=== PATIENT | male | born 1980 | race Caucasian/White ===

== ENCOUNTER 2019-05-12 09:03 | Emergency (ER) | payer OTHER ==
[~2019-05-12] VITALS: Ht 182.9 cm; Wt 104.5 kg
--- NOTE | 2019-05-12 09:22 | NUR ---
Patient brought in by EMS after being called by marcela, patient was asleep in his car. Per EMS patient was easily arousable, calm and compliant. Patient was reportedly given the option to go to the ED or with [facility] and chose to come here. Patient's blood glucose 99mg/dL per EMS. Patient arrives denying medical complaints, abrasion to right forehead and right knee without bleeding, patient states he knows how he got the wounds but doesn't care to elaborate when asked. Patient reports small amount of pain to right forehead, as documented. Patient states he is intoxicated with alcohol, prefers not to disclose how much, states "a lot". Continuous blood pressure and SPO2 monitoring in place, call orta within reach. Patient demonstrates appropriate use of call orta. Patient up to restroom ambulating independently with EMS prior to being roomed, gait is unsteady.
[2019-05-12 10:13] VITALS: BP 99/63
--- NOTE | 2019-05-12 10:13 | NUR ---
Patient mostly sleeping, easily arouses to voice. Waiting for meal tray.
--- NOTE | 2019-05-12 10:39 | NUR ---
Patient sitting up at the edge of bed eating breakfast.
--- NOTE | 2019-05-12 10:54 | NUR ---
Patient ate 100% of breakfast, up to restroom with steady gait.
--- NOTE | 2019-05-12 10:57 | NUR ---
Discharge instructions discussed with patient including when to return to emergency department, patient verbalizes understanding. Patient offered cab voucher, has requested to have a few minutes to think about where he would like to go.
--- NOTE | 2019-05-12 11:17 | NUR ---
Patient provided with cab voucher, ambulates with steady gait in no acute distress.
== END 2019-05-12 11:18 | disposition home or self-care (01) ==
LOC: ED 10:59
DX: F10.229 Alcohol dependence with intoxication, unspecified (principal); Y90.0 Blood alcohol level of less than 20 mg/100 ml; S09.8XXA Other specified injuries of head, initial encounter; X58.XXXA Exposure to other specified factors, initial encounter; Y93.89 Activity, other specified; Y92.89 Other specified places as the place of occurrence of the external cause; Y99.8 Other external cause status
CPT/HCPCS: 99283

== ENCOUNTER 2019-07-30 18:06 | Emergency (ER) | payer MEDICAID, OTHER ==
[~2019-07-30] VITALS: Ht 177.8 cm; Wt 89.2 kg
--- NOTE | 2019-07-30 19:17 | NUR ---
not in lobbyx1
[2019-07-30 19:35] LABS: BASOPHILS # (AUTO) 0.04 x10^3/uL (0-0.1); BASOPHILS % (AUTO) 1 % (0-1); EOSINOPHILS # (AUTO) 0.32 x10^3/uL (0-0.4); EOSINOPHILS % (AUTO) 4 % (1-7); LYMPHOCYTES # (AUTO) 2.15 x10^3/uL (1-3.4); LYMPHOCYTES % (AUTO) 27 % (22-44); MD NO; MEAN CORPUSCULAR HEMOGLOBIN 29.8 pg (27.5-34.5); MEAN CORPUSCULAR HGB CONC 33.3 g/dL (33.2-36.2); MEAN CORPUSCULAR VOLUME 89.4 fL (81-97); MEAN PLATELET VOLUME 8.2 fL (7.4-10.4); MONOCYTES # (AUTO) 0.72 x10^3/uL (0.2-0.8); MONOCYTES % (AUTO) 9 % (2-9); NEUTROPHILS # (AUTO) 4.59 x10^3/uL (1.8-6.8); NEUTROPHILS % (AUTO) 59 % (42-75); PLATELET COUNT 224 x10^3/uL (130-400); RED BLOOD COUNT 4.64 x10^6/uL (4.38-5.82); RED CELL DISTRIBUTION WIDTH 13.9 % (9.4-14.8)
--- NOTE | 2019-07-30 19:43 | NUR ---
PT HAS CO BLOOD W EVERY BM AND EXCESSIVE GAS FOR 2 WEEKS. AMOUNT OF BLOOD SMALL. PT DENIES ANY PAIN IN ABDOMEN OR W BM. NO N/V/D. MD AT BEDSIDE DISCUSSING POC, LABS AND IMAGING.
[2019-07-30 19:46] LABS: ALBUMIN 3.8 g/dL (3.4-5.0); ANION GAP 5 mmol/L (5-15); CALCIUM 9.1 mg/dL (8.5-10.1); CHLORIDE 109 mmol/L (98-107)
[2019-07-30 19:50] LABS: ALANINE AMINOTRANSFERASE 23 U/L (12-78); ALKALINE PHOSPHATASE 68 U/L (45-117); BILIRUBIN,TOTAL 0.4 mg/dL (0.2-1.0); CREATININE 1.17 mg/dL (0.7-1.3); TOTAL PROTEIN 6.8 g/dL (6.4-8.2)
--- NOTE | 2019-07-30 20:51 | NUR ---
REPORT FROM ARGENIS CROFT
[2019-07-30 20:53] VITALS: BP 112/54
--- NOTE | 2019-07-30 20:56 | NUR ---
Patient/Caregiver given discharge instructions and they have confirmed that they understand the instructions. Patient ambulatory with steady gait.
--- NOTE | 2019-07-30 20:56 | NUR ---
Md at bedside discussing poc.
[2019-07-30] MEDS ORDERED: OMNIPAQUE 350 MG/ML, 100ML BOTTLE ONE (23:48)
== END 2019-07-30 21:28 | disposition home or self-care (01) ==
LOC: ED 20:21
DX: K62.5 Hemorrhage of anus and rectum (principal)
CPT/HCPCS: 36415; 74021; 74177; 80053; 83690; 85025; 99284; Q9967

== ENCOUNTER → 2021-01-18 | Outpatient (CLI) | payer OTHER, MEDICAID ==
[~2021-01-18] MED LIST: ESCI20TA10 PO; LAMO300T PO
== END | disposition home or self-care (01) ==
LOC: STAR 08:10
PROVIDERS: ATTEND Surgery
DX: Z20.822 Contact with and (suspected) exposure to COVID-19 (principal)
CPT/HCPCS: U0003; U0005

== ENCOUNTER 2021-01-24 09:31 | Day surgery (SDC) | payer OTHER, MEDICAID ==
[~2021-01-24] VITALS: Ht 177.8 cm; Wt 88.4 kg
[~2021-01-24 09:31] MED LIST changes: +BUPIVACAINE 0.25% ONE; +EPINEPHRINE 1 MG/ML, 1ML ONE
[2021-01-24] MEDS ORDERED: HYDR-3565 PO (09:52)
[2021-01-24 10:10] VITALS: BP 106/67
[2021-01-24] MEDS ORDERED: CHLORHEXIDINE 15 ML UDC ONE (10:12)
[2021-01-24] MEDS ORDERED: CHLORHEXIDINE 15 ML UDC PO ONE (10:30)
[2021-01-24] MEDS ORDERED: LACTATED RINGERS 1,000 ML IV SCH (10:30)
[2021-01-24] MEDS ORDERED: MIDAZOLAM 1 MG/ML, 2ML ONE (11:06)
[2021-01-24] MEDS ORDERED: PROPOFOL 50 ML ONE (11:06)
[2021-01-24] MEDS ORDERED: FENTANYL PF 250 MCG/5ML ONE (11:07)
[2021-01-24] MEDS ORDERED: DEXAMETHASONE 4 MG/ML, 1ML ONE (11:16)
[2021-01-24] MEDS ORDERED: KETOROLAC 30 MG/1 ML ONE (11:16)
[2021-01-24] MEDS ORDERED: ONDANSETRON 2MG/ML, 2ML ONE (11:29)
[2021-01-24] MEDS ORDERED: ACETAMINOPHEN 325 MG TABLET PO PRN (12:00)
[2021-01-24] MEDS ORDERED: EPHEDRINE 50 MG/ML, 1ML IVPush PRN (12:00)
[2021-01-24] MEDS ORDERED: morphine SULFATE 10 MG/ML, 1ML IVPush PRN (12:00)
[2021-01-24] MEDS ORDERED: DIAZEPAM 5 MG/ML, 2ML IVPush PRN (12:00)
[2021-01-24] MEDS ORDERED: MEPERIDINE/PF 25MG/0.5ML IVPush PRN (12:00)
[2021-01-24] MEDS ORDERED: OXYcodone 5 MG/5 ML ORAL.SOL UDC PO PRN (12:00)
[2021-01-24] MEDS ORDERED: FENTANYL PF 100 MCG/2ML IV PRN (12:00)
[2021-01-24] MEDS ORDERED: LABETALOL 5MG/ML, 20ML IV PRN (12:00)
[2021-01-24] MEDS ORDERED: PROMETHAZINE 25 MG/ML, 1ML IVPush PRN (12:00)
[2021-01-24] MEDS ORDERED: EPHEDRINE 50 MG/ML, 1ML IM PRN (12:00)
[2021-01-24] MEDS ORDERED: ONDANSETRON 2MG/ML, 2ML IVPush PRN (12:00)
[2021-01-24] MEDS ORDERED: DIPHENHYDRAMINE 50 MG/ML, 1ML IVPush PRN (12:00)
== END 2021-01-24 14:45 | disposition home or self-care (01) ==
LOC: OUT 09:31
PROVIDERS: ATTEND Surgery
DX: R22.9 Localized swelling, mass and lump, unspecified (principal); D17.1 Benign lipomatous neoplasm of skin and subcutaneous tissue of trunk; F32.9 Major depressive disorder, single episode, unspecified; Z79.899 Other long term (current) drug therapy; Z98.890 Other specified postprocedural states; Z87.891 Personal history of nicotine dependence; Z72.89 Other problems related to lifestyle
CPT/HCPCS: 21933; 88305; J0171; J1100; J1885; J2250; J2405; J2704; J3010; J7120

== ENCOUNTER 2021-04-12 18:26 | Emergency (ER) | payer MEDICAID, OTHER ==
[~2021-04-12] VITALS: Ht 177.8 cm; Wt 80.0 kg
[~2021-04-12 18:26] MED LIST changes: -BUPIVACAINE 0.25% ONE; -EPINEPHRINE 1 MG/ML, 1ML ONE; +HYDR-3565 PO
[2021-04-12 18:34] VITALS: BP 150/82
[2021-04-12 19:28] LABS: BASOPHILS % (AUTO) 0 % (0-1); EOSINOPHILS % (AUTO) 0 % (1-7); LYMPHOCYTES % (AUTO) 21 % (22-44); MEAN CORPUSCULAR HEMOGLOBIN 29.9 pg (27.5-34.5); MEAN CORPUSCULAR HGB CONC 35.1 g/dL (33.2-36.2); MEAN PLATELET VOLUME 8.7 fL (7.4-10.4); MONOCYTES % (AUTO) 12 % (2-9); NEUTROPHILS % (AUTO) 67 % (42-75); PLATELET COUNT 276 x10^3/uL (130-400); RED BLOOD COUNT 5.64 x10^6/uL (4.38-5.82); RED CELL DISTRIBUTION WIDTH 13.4 % (9.4-14.8)
[2021-04-12 19:41] LABS: ALBUMIN 4.6 g/dL (3.4-5.0); ANION GAP 15 mmol/L (5-15); CALCIUM 9.8 mg/dL (8.5-10.1); CHLORIDE 97 mmol/L (98-107)
[2021-04-12 19:42] LABS: SALICYLATE LEVEL < 1.7 mg/dL (2.8-20.0)
[2021-04-12 19:44] LABS: ALANINE AMINOTRANSFERASE 69 U/L (12-78); ALKALINE PHOSPHATASE 68 U/L (45-117); BILIRUBIN,TOTAL 1.2 mg/dL (0.2-1.0); CREATININE 1.08 mg/dL (0.7-1.3); TOTAL PROTEIN 8.7 g/dL (6.4-8.2)
--- NOTE | 2021-04-12 19:52 | NUR ---
PT REQUESTING TO LEAVE, UNABLE TO STATE WHAT HIS ADDRESS IS. KEEPS REPEATING "[place], I CAN WALK THERE". PT EDUCATED ON WAITING FOR IMAGING TO RESULT. PT ALSO REFUSING TO KEEP [employer] ATTACHED. KEEPS TAKING THINGS OFF AND GETTING OUT OF BED AND WALKING AROUND. HAS STEADY GAIT.
--- NOTE | 2021-04-12 20:00 | NUR ---
PT KEEPS LEAVING ROOM AND STATING "PLEASE, I JUST WANT TO GO HOME" AND STATING "[id number]". PT UNABLE TO GIVE ADDRESS.
--- NOTE | 2021-04-12 20:25 | NUR ---
MOM, KATHLEEN CALLED PER PTS REQUEST. MOM IS IN [place] AND STATED SHE WOULD CALL NEIGHBOR TO HELP WITH [facility] [facility]. WILL CALL BACK LATER.
--- NOTE | 2021-04-12 20:41 | NUR ---
PT AUNT, WILFRIDYVETTE TO PICK PT UP. HER NUMBER IS [phone]
--- NOTE | 2021-04-12 20:55 | NUR ---
PT GIVEN PAIR OF PANTS FOR DC.
--- NOTE | 2021-04-12 21:42 | NUR ---
F/U AND D/C INSTRUCTIONS GIVEN TO PT AND PT V/U. PT AMBULATED TO DISCHARGE DESK.
== END 2021-04-12 21:45 | disposition home or self-care (01) ==
LOC: ED 21:36
DX: F10.129 Alcohol abuse with intoxication, unspecified (principal); R41.82 Altered mental status, unspecified; Y90.0 Blood alcohol level of less than 20 mg/100 ml
CPT/HCPCS: 36415; 70450; 71045; 80053; 80299; 80320; 80329; 82140; 85025; 99285; G0480